=== PATIENT | female | born 1980 ===

== ENCOUNTER 2017-01-09 17:03 | Emergency (ER) | payer OTHER ==
--- NOTE | 2017-01-09 17:30 | UC ---
Skin Complaint HPI - HPI Summary HPI Summary: 36 year old female presents with insect bite on right arm. - History of Current Complaint Chief Complaint: UCSkin Time Seen by Provider: 01/09/17 17:05 Stated Complaint: BUG BITE Hx Last Menstrual Period: 1 WEEK AGO - Allergy/Home Medications Allergies/Adverse Reactions: Allergies Allergy/AdvReac Type Severity Reaction Status Date / Time Erythromycin Allergy Severe SWELLING, Verified 01/09/17 17:10 HIVES Sulfa Antibiotics Allergy Severe SWELLING, Verified 01/09/17 17:10 HIVES Review of Systems Constitutional: Negative Skin: Other - arm insect bite Eyes: Negative ENT: Negative Respiratory: Negative Cardiovascular: Negative Gastrointestinal: Negative Genitourinary: Negative Motor: Negative Neurovascular: Negative Musculoskeletal: Negative Neurological: Negative Psychological: Negative All Other Systems Reviewed And Are Negative: Yes PMH/Surg Hx/FS Hx/Imm Hx - Surgical History Surgical History: None - Social History Alcohol Use: Occasionally Substance Use Type: None Smoking Status (MU): Never Smoked Tobacco Physical Exam Triage Information Reviewed: Yes Vital Signs: Initial Vital Signs Temp 37.2 C 01/09/17 17:07 Pulse 101 01/09/17 17:07 Resp 16 01/09/17 17:07 BP 125/79 01/09/17 17:07 Pulse Ox 99 01/09/17 17:07 Eye Exam: Normal ENT Exam: Normal Dental Exam: Normal Neck exam: Normal Neck: Positive: 1 Respiratory Exam: Normal Cardiovascular Exam: Normal Abdominal Exam: Normal Musculoskeletal Exam: Normal Neurological Exam: Normal Psychological Exam: Normal Skin: Positive: Other - right forearm insect bite Course/Dx - Diagnoses Provider Diagnoses: inesct bite right forearm Discharge - Discharge Plan Condition: Stable Disposition: HOME Prescriptions: Cephalexin CAP* [Keflex CAP*] 500 mg PO TID #30 cap LoraTADine TAB(NF) [Claritin 10 MG TAB(NF)] 10 mg PO DAILY #30 tab Ranitidine HCl [Zantac 150 Maximum Streng] 150 mg PO BID #30 tab Triamcinolone 0.1% CREAM (NF) [Kenalog 0.1% Cream (NF)] 1 applic .SEE ORDER TID #90 applic predniSONE TAB* [Deltasone TAB*] 40 mg PO DAILY #10 tab Patient Education Materials: Insect Bite or Sting (ED) Referrals: No Primary Care Phys,NOPCP [Primary Care Provider] -
== END 2017-01-09 17:35 | disposition home or self-care (01) ==
LOC: UCEAST 17:03
DX: S50.861A Insect bite (nonvenomous) of right forearm, initial encounter (principal); W57.XXXA Bitten or stung by nonvenomous insect and other nonvenomous arthropods, initial encounter; Z88.3 Allergy status to other anti-infective agents; Z88.1 Allergy status to other antibiotic agents
CPT/HCPCS: 99202; G0463